=== PATIENT | female | born 1995 | race Caucasian/White ===

== ENCOUNTER 2017-12-01 00:35 | Inpatient (IN) | payer MEDICAID ==
[~2017-12-01] VITALS: Ht 157.5 cm; Wt 50.0 kg
[2017-12-01] MEDS ORDERED: IBUP-2071 PO (01:05)
[2017-12-01] MEDS ORDERED: LAMO100 PO (01:05)
[2017-12-01 01:31] LABS: BASOPHILS # (AUTO) 0.02 K/uL (0.00-0.20); BASOPHILS % (AUTO) 0.3 % (0.0-2.0); EOSINOPHILS # (AUTO) 0.15 K/uL (0.00-0.70); EOSINOPHILS % (AUTO) 2.13 % (1.0-6.0); HEMATOCRIT 35.5 % (36-46); HEMOGLOBIN 11.9 g/dL (12.0-16.0); LYMPHOCYTES # (AUTO) 1.4 K/uL (1.0-4.8); MEAN CORPUSCULAR HGB CONC 33.6 G/dL (31.0-37.0); MEAN CORPUSCULAR VOLUME 86 fL (80-100); MONOCYTES # (AUTO) 0.6 K/uL (0.1-1.0); MONOCYTES % (AUTO) 8.4 % (2.0-9.0); NEUTROPHILS # (AUTO) 5.1 K/uL (1.8-7.7); NEUTROPHILS % (AUTO) 70.1 % (40.0-70.0); PLATELET COUNT (AUTO) 230 K/uL (150-450); RED CELL DISTRIBUTION WIDTH 13.3 % (11.5-14.5)
[2017-12-01 01:56] LABS: ALANINE AMINOTRANSFERASE 13 U/L (12-78); ALBUMIN 4.4 g/dL (3.4-5.0); ALKALINE PHOSPHATASE 86 U/L (46-116); ANION GAP 9 mmol/L (8-16); ASPARTATE AMINOTRANSFERASE 14 U/L (15-37); BILIRUBIN,TOTAL 0.2 mg/dL (0.1-1.0); CALCIUM, TOTAL 8.9 mg/dL (8.8-10.5); CARBON DIOXIDE 27 mmol/L (22-29); CHLORIDE 107 mmol/L (98-107); CREATININE 0.95 mg/dL (0.60-1.30); GLOMERULAR FILTR. RATE CALC > 60 mL/min (>60); GLUCOSE,RANDOM 105 mg/dL (70-110); POTASSIUM 4.2 mmol/L (3.5-5.1); SODIUM SERUM 143 mmol/L (136-145); TOTAL PROTEIN, SERUM 7.4 g/dL (6.4-8.2); UREA NITROGEN, BLOOD 8 mg/dL (7-18)
[2017-12-01 03:16] LABS: AMPHET/METH SCREEN,URINE NEGATIVE (NEGATIVE); BARBITURATE SCREEN, URINE NEGATIVE (NEGATIVE); BENZODIAZEPINES SCREEN,URINE NEGATIVE (NEGATIVE); CANNABINOID SCREEN,URINE NEGATIVE (NEGATIVE); COCAINE SCREEN,URINE NEGATIVE (NEGATIVE); METHADONE SCREEN, URINE NEGATIVE (NEGATIVE); OPIATE SCREEN,URINE NEGATIVE (NEGATIVE)
[2017-12-01 03:30] LABS: PHENCYCLIDINE SCREEN,URINE NEGATIVE (NEGATIVE)
[2017-12-01] MEDS ORDERED: OLANZapine 5 MG RAPDIS TABLET PO PRN (04:30)
[2017-12-01 05:41] LABS: APPEARANCE,URINE CLEAR (CLEAR); BILIRUBIN,URINE NEGATIVE (NEGATIVE); GLUCOSE, URINE (UA) NEGATIVE (NEGATIVE); KETONES,URINE NEGATIVE (NEGATIVE); LEUKOCYTE ESTERASE ,URINE NEGATIVE (NEGATIVE); NITRATE,URINE NEGATIVE (NEGATIVE); OCCULT BLOOD,URINE NEGATIVE (NEGATIVE); PROTEIN,URINE NEGATIVE (NEGATIVE); UROBILINOGEN,URINE 0.2 mg/dL (<=1.0)
[2017-12-01 05:41] LABS: CHOL/HDL RATIO 2.9 (3.9-5.7); CHOLESTEROL 194 mg/dL (131-200); HDL CHOLESTEROL 67 mg/dL (40-60); LDL CHOL (CALC.) 118 mg/dL (0-130); THYROID STIMULATING HORMONE 1.25 uIU/mL (0.36-3.74); TRIGLYCERIDES 47 mg/dL (15-150)
[2017-12-01] MEDS: LORazepam 2 MG TABLET PO PRN (11:24)
[2017-12-01 16:29] VITALS: BP 108/72
[2017-12-01] MEDS ORDERED: INFLUENZA VIRUS VACCINE QVS 2017-18 (3YR+)/PF 60 MCG/0.5 ML SYRINGE IM ONE (18:15)
[2017-12-01] MEDS ORDERED: IBUPROFEN 400 MG TABLET PO PRN (21:00)
[2017-12-01] MEDS ORDERED: ACETAMINOPHEN 325 MG TABLET PO PRN (21:00)
[2017-12-01] MEDS: ZOLPIDEM TARTRATE 10 MG TABLET PO PRN (21:44)
[2017-12-02 06:48] VITALS: BP 123/63
[2017-12-02 08:34] VITALS: BP 118/66
[2017-12-02] MEDS ORDERED: LOPERAMIDE HCL 2 MG CAPSULE PO PRN (11:00)
[2017-12-02] MEDS ORDERED: ACETAMINOPHEN 325 MG TABLET PO PRN (11:00)
[2017-12-02] MEDS ORDERED: MAG HYDROX/AL HYDROX/SIMETH ES 30 ML SUSPENSION UDCUP PO PRN (11:00)
[2017-12-02] MEDS ORDERED: PROMETHAZINE HCL 25 MG TABLET PO PRN (11:00)
[2017-12-02] MEDS ORDERED: TUBERCULIN, PURIFIED PROTEIN DERIVATIVE 5 TU/0.1 ML SYG ID ONE (11:00)
[2017-12-02] MEDS ORDERED: HydrOXYzine PAMOATE 50 MG CAPSULE PO PRN (11:00)
[2017-12-02] MEDS ORDERED: GuaiFENesin/D-METHORPHAN [SUGAR-FREE] 200-20MG/10 ML SYRUP UDCUP PO PRN (11:00)
[2017-12-02] MEDS ORDERED: MAGNESIUM HYDROXIDE SUSPENSION 30 ML UDCUP PO PRN (11:00)
[2017-12-02] MEDS: THIAMINE HCL 100 MG TABLET PO SCH (17:23)
[2017-12-02 18:41] VITALS: BP 103/51
[2017-12-02] MEDS: OLANZapine 10 MG RAPDIS TABLET PO SCH (20:23)
[2017-12-02] MEDS: ZOLPIDEM TARTRATE 10 MG TABLET PO PRN (21:07)
[2017-12-03 06:53] VITALS: BP 100/56
[2017-12-03 08:34] VITALS: BP 117/78
[2017-12-03] MEDS: FOLIC ACID 1 MG TABLET PO SCH (08:38)
[2017-12-03] MEDS: MULTIVITAMINS WITH MINERALS, THERAPEUTIC TABLET PO SCH (08:38)
[2017-12-03] MEDS: THIAMINE HCL 100 MG TABLET PO SCH ×2 (08:38→16:56)
[2017-12-03] MEDS ORDERED: FLUoxetine HCL 20 MG CAPSULE PO SCH (09:00)
[2017-12-03 16:00] VITALS: BP 108/68
[2017-12-03] MEDS: OLANZapine 10 MG RAPDIS TABLET PO SCH (21:35)
[2017-12-04 08:17] VITALS: BP 100/59
[2017-12-04] MEDS: MULTIVITAMINS WITH MINERALS, THERAPEUTIC TABLET PO SCH (08:26)
[2017-12-04] MEDS: THIAMINE HCL 100 MG TABLET PO SCH ×2 (08:26→16:13)
[2017-12-04] MEDS: FOLIC ACID 1 MG TABLET PO SCH (08:26)
[2017-12-04 16:18] VITALS: BP 110/60
[2017-12-04] MEDS ORDERED: OLANZapine 10 MG RAPDIS TABLET PO SCH (21:00)
[2017-12-05 06:32] VITALS: BP 102/68
[2017-12-05 08:21] VITALS: BP 118/71
[2017-12-05] MEDS: THIAMINE HCL 100 MG TABLET PO SCH (08:57)
[2017-12-05] MEDS: FOLIC ACID 1 MG TABLET PO SCH (08:57)
[2017-12-05] MEDS: LORazepam 2 MG TABLET PO PRN (08:57)
[2017-12-05] MEDS: MULTIVITAMINS WITH MINERALS, THERAPEUTIC TABLET PO SCH (08:57)
[2017-12-05] MEDS ORDERED: OLAN5TAB40 PO (13:33)
== END 2017-12-05 13:50 | disposition home or self-care (01) | DRG 750 ==
LOC: EMS 00:37 → B3A 14:45
PROVIDERS: ADMIT Psychiatry & Neurology Psychiatry; ATTEND Psychiatry & Neurology Psychiatry
PROC: 3E0234Z Introduction of Serum, Toxoid and Vaccine into Muscle, Percutaneous Approach (ICD-10-PCS; principal; 2017-12-01)
DX: F25.9 Schizoaffective disorder, unspecified (principal); D64.9 Anemia, unspecified; F31.9 Bipolar disorder, unspecified; F10.10 Alcohol abuse, uncomplicated; Z23 Encounter for immunization; Z79.899 Other long term (current) drug therapy
CPT/HCPCS: 70450; 81025; 84443; 90471; 99285; G0480

== ENCOUNTER 2018-04-10 16:03 | Inpatient (IN) | payer MEDICAID ==
[~2018-04-10] VITALS: Ht 160 cm; Wt 49.0 kg
[~2018-04-10 16:03] MED LIST: OLAN5TAB40 PO
[2018-04-10] MEDS ORDERED: LORazepam 2 MG TABLET PO PRN (19:00)
[2018-04-10] MEDS ORDERED: HALOPERIDOL 5 MG TABLET PO PRN (19:00)
[2018-04-10] MEDS ORDERED: ZOLPIDEM TARTRATE 10 MG TABLET PO PRN (19:00)
[2018-04-10 19:57] VITALS: BP 100/69
[2018-04-10] MEDS ORDERED: PETROLATUM,WHITE 71 GM JELLY TP PRN (21:00)
[2018-04-10] MEDS ORDERED: ALBUTEROL SULFATE HFA 90 MCG/PUFF 8 GM INHALER IH PRN (21:00)
[2018-04-10] MEDS ORDERED: BENZOCAINE/MENTHOL LOZENGE MM PRN (21:00)
[2018-04-10] MEDS ORDERED: MAG HYDROX/AL HYDROX/SIMETH ES 30 ML SUSPENSION UDCUP PO PRN (21:00)
[2018-04-10] MEDS ORDERED: ONDANSETRON HCL 4 MG TABLET PO PRN (21:00)
[2018-04-10] MEDS ORDERED: BACITRACIN 28.4 GM OINTMENT TP PRN (21:00)
[2018-04-10] MEDS ORDERED: MAGNESIUM HYDROXIDE SUSPENSION 30 ML UDCUP PO PRN (21:00)
[2018-04-10] MEDS ORDERED: IBUPROFEN 600 MG TABLET PO PRN (21:00)
[2018-04-10] MEDS ORDERED: ACETAMINOPHEN 325 MG TABLET PO PRN (21:00)
[2018-04-10] MEDS ORDERED: CloNIDine HCL 0.1 MG TABLET PO PRN (21:00)
[2018-04-10] MEDS ORDERED: LOPERAMIDE HCL 2 MG CAPSULE PO PRN (21:00)
[2018-04-11 05:47] VITALS: BP 114/66
[2018-04-11 07:54] LABS: BASOPHILS % (AUTO) 0.7 % (0.0-2.0); EOSINOPHILS % (AUTO) 7.7 % (1.0-6.0); HEMATOCRIT 34.5 % (36-46); HEMOGLOBIN 12.1 g/dL (12.0-16.0); LYMPHOCYTES # (AUTO) 1.8 K/uL (1.0-4.8); LYMPHOCYTES % (AUTO) 39.9 % (22.0-44.0); MEAN CORPUSCULAR HEMOGLOBIN 29.8 pg (26.0-34.0); MEAN CORPUSCULAR VOLUME 85 fL (80-100); MONOCYTES # (AUTO) 0.3 K/uL (0.1-1.0); MONOCYTES % (AUTO) 7.6 % (2.0-9.0); NEUTROPHILS % (AUTO) 44.1 % (40.0-70.0); PLATELET COUNT (AUTO) 165 K/uL (150-450); RED BLOOD CELL COUNT(AUTO) 4.04 MIL/uL (4.00-5.20); RED CELL DISTRIBUTION WIDTH 13.4 % (11.5-14.5)
[2018-04-11 08:05] VITALS: BP 88/62
[2018-04-11] MEDS: OMEPRAZOLE 20 MG CAPSULE PO SCH (08:05)
[2018-04-11] MEDS: DOCUSATE SODIUM 100 MG CAPSULE PO SCH (08:05)
[2018-04-11 08:37] LABS: HEMOGLOBIN A1C 5.1 % (4.5-6.2)
[2018-04-11 08:50] LABS: ALANINE AMINOTRANSFERASE 17 U/L (12-78); ALBUMIN 4.1 g/dL (3.4-5.0); ALKALINE PHOSPHATASE 80 U/L (46-116); ANION GAP 9 mmol/L (8-16); ASPARTATE AMINOTRANSFERASE 16 U/L (15-37); BILIRUBIN,TOTAL 0.5 mg/dL (0.1-1.0); CALCIUM, TOTAL 8.9 mg/dL (8.8-10.5); CARBON DIOXIDE 28 mmol/L (22-29); CHLORIDE 106 mmol/L (98-107); CHOL/HDL RATIO 5.3 (3.9-5.7); CHOLESTEROL 246 mg/dL (131-200); FREE T4 (FREE THYROXINE) 0.86 ng/dL (0.76-1.46); GLOMERULAR FILTR. RATE CALC > 60 mL/min (>60); GLUCOSE,RANDOM 73 mg/dL (70-110); HCG,QUANTITATIVE < 1 mIU/mL (0-6); HDL CHOLESTEROL 46 mg/dL (40-60); LDL CHOL (CALC.) 172 mg/dL (0-130); POTASSIUM 4.1 mmol/L (3.5-5.1); SODIUM SERUM 143 mmol/L (136-145); THYROID STIMULATING HORMONE 0.59 uIU/mL (0.36-3.74); TOTAL PROTEIN, SERUM 6.8 g/dL (6.4-8.2); TRIGLYCERIDES 138 mg/dL (15-150); UREA NITROGEN, BLOOD 11 mg/dL (7-18)
[2018-04-11 15:00] VITALS: BP 108/71
[2018-04-11 16:21] VITALS: BP 115/67
[2018-04-12 02:30] VITALS: BP 100/60
[2018-04-12 08:11] VITALS: BP 100/60
[2018-04-12] MEDS: DOCUSATE SODIUM 100 MG CAPSULE PO SCH (08:11)
[2018-04-12] MEDS: OMEPRAZOLE 20 MG CAPSULE PO SCH (08:11)
[2018-04-12] MEDS: OLANZapine 5 MG TABLET PO SCH (10:39)
[2018-04-12 16:40] VITALS: BP 100/61
[2018-04-12] MEDS: OLANZapine 10 MG TABLET PO SCH (20:44)
[2018-04-12 20:45] VITALS: BP 110/75
[2018-04-13 05:58] VITALS: BP 110/65
[2018-04-13 08:23] VITALS: BP 106/69
[2018-04-13] MEDS: OLANZapine 5 MG TABLET PO SCH (08:29)
[2018-04-13] MEDS: OMEPRAZOLE 20 MG CAPSULE PO SCH (08:29)
[2018-04-13] MEDS: DOCUSATE SODIUM 100 MG CAPSULE PO SCH (08:29)
[2018-04-13 16:04] VITALS: BP 100/64
[2018-04-13] MEDS: OLANZapine 10 MG TABLET PO SCH (20:17)
[2018-04-14 01:25] VITALS: BP 102/64
[2018-04-14] MEDS: OLANZapine 5 MG TABLET PO SCH (08:12)
[2018-04-14] MEDS: OMEPRAZOLE 20 MG CAPSULE PO SCH (08:12)
[2018-04-14] MEDS: DOCUSATE SODIUM 100 MG CAPSULE PO SCH (08:12)
[2018-04-14 08:31] VITALS: BP 101/77
[2018-04-14 16:10] VITALS: BP 116/60
[2018-04-14] MEDS: OLANZapine 10 MG TABLET PO SCH (20:06)
[2018-04-15 07:12] VITALS: BP 102/78
[2018-04-15] MEDS: DOCUSATE SODIUM 100 MG CAPSULE PO SCH (08:15)
[2018-04-15] MEDS: OLANZapine 5 MG TABLET PO SCH (08:15)
[2018-04-15] MEDS: OMEPRAZOLE 20 MG CAPSULE PO SCH (08:15)
[2018-04-15 08:31] VITALS: BP 100/68
[2018-04-15 16:14] VITALS: BP 110/69
[2018-04-15] MEDS: OLANZapine 10 MG TABLET PO SCH (20:18)
[2018-04-16 00:40] VITALS: BP 103/62
[2018-04-16] MEDS: DOCUSATE SODIUM 100 MG CAPSULE PO SCH (08:26)
[2018-04-16] MEDS: OMEPRAZOLE 20 MG CAPSULE PO SCH (08:26)
[2018-04-16] MEDS: OLANZapine 5 MG TABLET PO SCH (08:26)
[2018-04-16 08:32] VITALS: BP 102/68
[2018-04-16] MEDS ORDERED: OLAN10TA3 PO (14:35)
[2018-04-16] MEDS ORDERED: OMEP20 PO (14:35)
[2018-04-16] MEDS ORDERED: OLAN5TAB2 PO (14:35)
[2018-04-16] MEDS ORDERED: DSS100 PO (14:35)
== END 2018-04-16 16:05 | disposition home or self-care (01) | DRG 750 ==
LOC: B2S 19:04
PROVIDERS: ADMIT Psychiatry & Neurology Child & Adolescent Psychiatry; ATTEND Psychiatry & Neurology Child & Adolescent Psychiatry
DX: F20.9 Schizophrenia, unspecified (principal); E78.5 Hyperlipidemia, unspecified; F41.9 Anxiety disorder, unspecified; G47.00 Insomnia, unspecified; F10.10 Alcohol abuse, uncomplicated; Y90.9 Presence of alcohol in blood, level not specified
CPT/HCPCS: 83036; 84439; 84443

== ENCOUNTER 2024-03-17 20:52 | Emergency (ER) | payer MEDICAID ==
[~2024-03-17] VITALS: Ht 157.5 cm; Wt 90.9 kg
[~2024-03-17 20:52] MED LIST changes: +DSS100 PO; +OLAN10TA74 PO; -OLAN5TAB40 PO; +OLAN5TAB52 PO; +OMEP20 PO
[2024-03-17 21:00] VITALS: BP 118/69; PULSE 79; RESP 16; TEMP 98.3
== END 2024-03-17 22:29 | disposition left against medical advice (07) ==
LOC: EMS 20:54
DX: Z53.21 Procedure and treatment not carried out due to patient leaving prior to being seen by health care provider (principal)
CPT/HCPCS: 99281; Z7502